=== PATIENT | female | born 1960 ===

== ENCOUNTER 2016-11-04 11:45 | Emergency (ER) | payer MEDICARE, OTHER, MEDICAID ==
[2016-10-25 07:48] VITALS: BMI 33.9
== END 2016-11-04 23:03 | disposition home or self-care (01) ==
LOC: ED 11:45
DX: R25.1 Tremor, unspecified (principal)

== ENCOUNTER 2017-03-02 11:17 | Day surgery (SDC) | payer MEDICARE, OTHER ==
[2017-02-25 09:46] VITALS: BMI 35.8
[2017-03-02] MEDS ORDERED: Lidocaine 2% Inj (20ml) ONE (13:52)
[2017-03-02] MEDS ORDERED: Propofol 10 mg/ml Inj (20 ML) ONE (13:52)
[2017-03-02] MEDS ORDERED: Sodium Chloride 0.9% 1,000 ML IV SCH (14:45)
[2017-03-02 15:51] VITALS: BP 151/86; PULSE 50; RESP 18; TEMP 98; O2SAT 100
== END 2017-03-02 15:57 | disposition home or self-care (01) ==
LOC: ENDO 11:17
PROVIDERS: ATTEND Internal Medicine Gastroenterology
DX: Z12.11 Encounter for screening for malignant neoplasm of colon (principal); K64.8 Other hemorrhoids; K64.4 Residual hemorrhoidal skin tags; K59.00 Constipation, unspecified; E03.9 Hypothyroidism, unspecified
CPT/HCPCS: 45378; J2704; J7040